=== PATIENT | male | born 1995 | race Hispanic/Latino ===

== ENCOUNTER 2018-09-27 10:42 | Emergency (ER) | payer BC ==
[~2018-09-27] VITALS: Ht 170.2 cm; Wt 88.9 kg
[2018-09-27] MEDS ORDERED: LEVETIRACETAM750 MG PO (11:01)
[2018-09-27] MEDS ORDERED: AUGMENTIN 875-1 EACH PO (11:02)
== END 2018-09-27 11:47 | disposition home or self-care (01) ==
LOC: ER 10:42
DX: H66.002 Acute suppurative otitis media without spontaneous rupture of ear drum, left ear (principal)
CPT/HCPCS: 99282